=== PATIENT | male | born 1950 | race Caucasian/White ===

== ENCOUNTER 2018-01-31 03:34 | Inpatient (IN) | payer OTHER ==
[~2018-01-31] VITALS: Ht 152.4 cm; Wt 95.3 kg
[~2018-01-31 03:34] MED LIST: ASPIRIN81 M4 PO; BENICAR40 M1 PO; MELOXICAM7.5 M1 PO; METFORMIN HCL500 M3 PO; NIASPAN1000 M1 PO; SIMVASTATIN40 M1 PO; TRAMADOL HCL50 M1 PO
--- NOTE | 2018-01-31 09:34 | Operative Report ---
Operative/Inv Procedure Report Surgery Date: 01/31/18 Name of Procedure: Right total knee arthroplasty Pre-Operative Diagnosis: Right knee primary osteoarthritis Post-Operative Diagnosis: Same Estimated Blood Loss: less than 50ml Surgeon/Staffing Program Manager: Thomas BEAN,Vicente Ross PA Anesthesia: block Implants: [place] triathlon total knee system-size 4 femur, size 5 tibia, 16mm cruciate retaining polyethylene, 33 patella Drains: None Specimens: Femoral, tibial, patellar bone,, hypertrophied synovium Microbiology: Urine Tourniquet: 51 minutes Complications: None Condition: Stable Operative Indication: Patient is a 67-year-old man with a long history of right knee problems. He was diagnosed with severe end-stage osteoarthritis years ago. He had tolerated symptoms with some conservative measures. However he had increasing symptoms that interfere with normal activities of daily living. He describes instability. He wished to proceed with total knee arthroplasty. Risks benefits and expectations of the surgical procedure were discussed which included but were not limited to persistent knee pain, need for subsequent surgery, infection , DVT, injury of blood vessel or nerve and anesthesia risks Operative/Procedure Note Note: Patient was brought to the operating room and transferred to the operating table. Once an appropriate anesthesia the right lower extremity was prepped and draped in standard fashion. Preoperative IV antibiotics were given prophylactically. Prior to incision, patient was noted to have severe global instability of the knee on exam. The leg was elevated exsanguinated and tourniquet was inflated to 300 millimeters of pressure. Standard anterior incision was made for anticipated medial parapatellar approach to the knee. The incision was taken down sharply to the underlying retina acumen. A medial retinacular approach was used with a minimal extension to the quadricep tendon. The knee was exposed. Very large clear synovial fluid accumulation was evacuated. Large loose bodies were removed from the suprapatellar pouch. These were enclosed within a very hypertrophied synovium which was excised later on the case. Severe end-stage degenerative changes throughout the 3 compartments of the knee were noted. Osteophytes were excised. Soft tissue dissection was taken medially. Portion of the fat pad was removed for exposure purposes remnants of the medial lateral meniscal tissues were excised. PCL was recessed for balancing purposes. There was severe osteophyte formation within the notch to the point where there was no notch. Eburnated bone throughout all 3 compartments noted. Large osteophytes circumferentially excised. Knee was flexed and patella was subluxed. Retractors were placed medially laterally. The drill was used to enter the intramedullary canal for the intramedullary guide to the distal femoral cut. The cutting guide was pinned in place for a 6 valgus cut. Cut was made. Femur was then sized to a size 4. The 4 cuts were made to finished preparation of the femur. I then turned my attention to the tibia. I used the external tibial alignment guide and pinned the cutting block in neutral position from medial to lateral and reproducing patient's posterior slope based on intraoperative findings and preoperative templating. Again this soft tissues were protected medially laterally and posteriorly. PCL was recessed slightly for balancing purposes it was found to be intact despite patient's global instability. I then sized the tibia to a size 5. Osteophytes were excised from the posterior compartment trial reduction was completed. Due to patient's very large knee effusion and global instability, a large polyethylene would need to be used despite just a relatively conservative tibial cut. The final thickness of the polyethylene would be determined later on the case. A 13 mm polyethylene was used to temporarily reduce the knee and take it out to full extension. Patella was then measured and the appropriate thickness was removed and restored with a size 33 patella. Patella tracking was good and would be confirmed later on after the tourniquet was deflated. I marked my rotation of the tibia and drilled my 2 locals for the femur. All its rotation was removed from the knee. This was followed by the appropriate sized tibial punch to finish preparation of the tibia. All instrument patient was removed from the knee and copious irrigation the knee followed. Cement was being mixed on the back table. Once the cement was ready was applied to the dry clean bony surfaces of the tibia. The size 5 tibia was impacted in place and excess cement was removed with curette. Cement was applied to dry clean bony surfaces of the femur and the size 4 femur was impacted in place and excess cement was removed with curette. Cement was applied to the dry clean bony surfaces of the patella and excess cement was removed with a knife following impaction of the size 33 patella. Once the cement hardened and took the knee through range of motion. Small pieces of excess cement were removed with osteotome. I did a trial reduction with a size 16 polyethylene full extension. Excellent mid flexion stability and full flexion to gravity noted. Obese irrigation the knee followed. I removed the trial polyethylene. Copious irrigation of the tibial tray followed. I made sure there was no remaining soft tissue, bone fragments or cement fragments within the tibial tray and then I impacted the definitive size 16 cruciate retaining polyethylene component into place and the locking mechanism was confirmed. Copious irrigation followed. Tourniquet was deflated at 51 minutes. Hemostasis was obtained. The retinaculum and minimal extension to the quadricep was repaired with interrupted #1 Vicryl sutures. Subcu tissue was closed in 2 layers with 2-0 Vicryl and skin was closed with a running 3-0 Vicryl suture with the knee in flexion. Every level of closure was followed by copious irrigation. Appropriate dressings were applied and patient was awakened and taken to recovery room in good condition. Blood loss was less than 50 cc Discharge Disposition: PACU
[2018-01-31 14:06] VITALS: BP 146/86
--- NOTE | 2018-01-31 16:05 | PN- Orthopedic ---
Subjective Subjective: POC pain well controlled, no n/v, no cp/sob. no oob yet. awaiting meal. +uo via abraham Objective Vital Signs and I&Os Intake & Output 01/31 0801/31 0000 01/30 0801/30 0000 Intake Total Output Total Balance Patient 210 lb Weight Weight Reported by Patient Measurement Method Physical Exam: GEN- NAD CARD- S1S2 PULM- CTAB ABD- soft nt nd EXT- right le dressed w juan jose, feet warm, palp pedal pulses +dorsi/plantar flexion , +sensation bl Assessment/Plan Assessment/Plan A- POD0 sp R TKR, stable with minimal pain P- PT, WBAT anticoagulation: eliquis 2.5 bid, alps diet as tolerated home meds prn pain meds prn antiemetics dc planning will dw attending Core Measures Venous Thromboembolism VTE Risk Factors Surgery No Mechanical VTE Prophylaxis d/t N/A MechProphylax Ordered No VTE Pharm Prophylaxis d/t NA PharmProphylax ordered
[2018-01-31 16:58] VITALS: BP 143/100
[2018-01-31 21:09] VITALS: BP 157/94
[2018-02-01 01:00] VITALS: BP 163/87
[2018-02-01 05:00] VITALS: BP 151/85
--- NOTE | 2018-02-01 08:14 | PN- Orthopedic ---
See Addendum Subjective Subjective: POD#1 S/P RIGHT TKA NO MAJOR ISSUES OVERNIGHT DENEIS CP, SOB, NO N+V WITH DIET Objective Vital Signs and I&Os Vital Signs Date Time Temp Pulse Resp B/P B/P Pulse O2 O2 Flow FiO2 Mean Ox Delivery Rate 02/01 0500 98.1 80 19 151/85 96 02/01 0100 98.1 71 18 163/87 94 01/31 2109 98.7 85 18 157/94 92 Room Air 01/31 1658 97.8 91 20 143/100 93 Room Air 01/31 1406 97.4 76 18 146/86 96 Room Air Intake & Output 02/01 1600 02/01 0800 02/01 0000 01/31 1600 01/31 0800 01/31 0000 Intake Total 540 Output Total 1999 1500 Balance -1999 -960 Intake, IV 300 Intake, Oral 240 Number 0 Bowel Movements Output, Urine 1999 1499 Patient 210 lb 210 lb Weight Weight Reported by Patient Measurement Method Physical Exam: CV: RRR LUNGS: CLEAR ABD: SOFT, +BS EXT: DRSG DRY DISTAL CMS INTACT Assessment/Plan Assessment/Plan ORTHO STABLE PLAN OOB WITH PT TODAY WBAT RIGHT LE D/C IVF TITRATE PAIN MEDS HOME D/C PLAN Core Measures Venous Thromboembolism VTE Risk Factors Surgery No Mechanical VTE Prophylaxis d/t N/A MechProphylax Ordered No VTE Pharm Prophylaxis d/t NA PharmProphylax ordered
[2018-02-01 08:23] LABS: ABSOLUTE BASOPHIL COUNT 0 /CUMM (0.0-0.2); ABSOLUTE EOSINOPHIL COUNT 0 /CUMM (0.0-0.7); ABSOLUTE GRANULOCYTE CT 8.2 /CUMM (1.4-6.5); ABSOLUTE LYMPH COUNT 0.9 /CUMM (1.2-3.4); ABSOLUTE MONOCYTE COUNT 0.7 /CUMM (0.10-0.60); BASOPHIL % 0.3 % (0.0-2.0); EOSINOPHIL % 0 % (0-5); GRANULOCYTE % 82.6 % (42.2-75.2); HEMATOCRIT 38.8 % (42-52); MEAN CORPUSCULAR HGB 31.8 PG (27.0-31.0); MEAN CORPUSCULAR VOLUME 93.6 FL (80.0-94.0); MEAN PLATELET VOLUME 7.9 FL (7.4-10.4); PLATELET COUNT 221 /CUMM (130-400); RBC DISTRIBUTION WIDTH 13.2 % (11.5-14.5); RED BLOOD CELL CT 4.15 /CUMM (4.70-6.10); WHITE BLOOD CELL COUNT 9.9 /CUMM (4.8-10.8)
[2018-02-01 08:43] VITALS: BP 132/91
[2018-02-01 13:31] VITALS: BP 146/102
[2018-02-01 16:10] VITALS: BP 130/78
[2018-02-01 21:49] VITALS: BP 142/85
[2018-02-02 06:39] VITALS: BP 139/80
[2018-02-02 08:59] VITALS: BP 130/70
--- NOTE | 2018-02-02 09:22 | Patient Discharge Instructions ---
Discharge Instructions General Discharge Information You were seen/treated for: Right knee pain related to unilateral primary osteoarthritis You had these procedures: Right total knee replacement Watch for these problems: Increasing pain despite the use of pain medication Increasing redness, warmth and swelling to right knee Inability to bear weight on right knee Drainage of any type from incision Inability to urinate or move bowels Fever greater than 101.5 Do not soak the wound: Yes No bath, but you may shower: Yes Other wound care: Please keep wound clean and dry, protect wound while showering, do not scrub incision, pat dry with clean towel in the event that wound gets wet. No ointments of any type on or near incision at any time, no exceptions. Do not soak wound in bath, hot tub, or any body of water for a minimum of 6 weeks or until other herrera indicated by Dr. Guzman Special Instructions: Please be certain to take a stool softener or a laxative, or both, in the event that the pain medication leaves you constipated. If after a few days you are unable to move your bowels, or if you develop excessive bloating, are nauseated or vomitting, and are unable to pass gas, please contact your doctor or visit the ER. Diet Continue normal diet: Yes Recommended Diet: Regular Activity Full Activity/No Limits: No Activity Self Limited: Yes Pounds, do NOT lift more than: 10 Acute Coronary Syndrome Inclusion Criteria At DC or during hospital stay patient has or had the following: ACS DIAGNOSIS No Discharge Core Measures Meds if any: Prescribed or Continued at Discharge Meds if any: NOT Prescribed or Continued at Discharge Congestive Heart Failure Inclusion Criteria At DC or during hospital stay patient has or had the following: CHF DIAGNOSIS No Discharge Core Measures Meds if any: Prescribed or Continued at Discharge Meds if any: NOT Prescribed or Continued at Discharge Cerebrovascular accident Inclusion Criteria At DC or during hospital stay patient has or had the following: CVA/TIA Diagnosis No Discharge Core Measures Meds if any: Prescribed or Continued at Discharge Meds if any: NOT Prescribed or Continued at Discharge Venous thromboembolism Inclusion Criteria VTE Diagnosis No VTE Type NONE VTE Confirmed by (Test) NONE Discharge Core Measures - Per Current guidelines, there needs to be overlap - treatment for the first 5 days of Warfarin therapy. - If discharged on Warfarin prior to 5 days of - overlap therapy, the patient will need to be - assessed for post discharge needs including - *Post discharge parental anticoagulation - *Warfarin and/or parental anticoagulation education - *Follow up date to check INR post discharge At least 5 days overlap therapy as Inpatient No Meds if any: Prescribed or Continued at Discharge Note: Overlap Therapy is Warfarin and Anticoagulant Meds if any: NOT Prescribed or Continued at Discharge
[2018-02-02] MEDS ORDERED: PERCOCET 5-3251 EACH PO (09:25)
[2018-02-02] MEDS ORDERED: MIRALAX17 G1 PO (09:25)
[2018-02-02] MEDS ORDERED: ELIQUIS2.5 M1 PO (09:25)
[2018-02-02] MEDS ORDERED: COLACE100 M1 PO (09:25)
--- NOTE | 2018-02-02 09:27 | Surgical Discharge Summary ---
Visit Information Visit Dates Admission Date: 01/31/18 Discharge Date: 02/02/2018 History of Present Illness Chief Complaint: Right knee pain related to unilateral primary osteoarthritis Medical History Neurological: NONE Cardiovascular: hypertension, hyperlipidemia Respiratory: NONE Gastrointestinal: NONE Hepatic: NONE Renal: nephrolithiasis Musculoskeletal: osteoarthritis Psychiatric: NONE Endocrine: diabetes Cancer(s): NONE History of MRSA: No History of VRE: No History of CDIFF: No Isolation History: Standard Influenza Vaccine: 11/15/16 Tetanus Vaccine: Surgical History Pertinent Surgical History: arthroscopy Psychosocial History Who Do You Live With? Family What is Your Primary Language? Somali Review of Systems: See H&P Hospital Course Course Attending Physician: Thomas BEAN,[facility] Primary Care Physician: Leandra BEAN,[facility] Course: Josafat was admitted to the hospital on 01/31/2018 and underwent an elective and scheduled right total knee replacement. He tolerated the procedure well and was transferred to a general surgical floor. His diet was advanced and tolerated. He voided spontaneously. He was evaluated and treated by physical therapy and was cleared for discharge to home with home health services. Throughout hospital course and at the time of hospital discharge, his vital signs were stable and within normal limits, his neurovascular status was grossly intact and his pain was controlled with the use of oral pain medication. Allergies: Coded Allergies: No Known Allergies (01/21/18) Disposition Summary Disposition Principal Diagnosis: Right knee unilateral primary osteoarthritis Additional Diagnosis: None Discharge Disposition: home health services Discharge Instructions General Discharge Information Code Status: Full Code Patient's Diet: Diabetic, advance as tolerated Patient's Activity: WBAT Follow-Up Instructions/Appts: Follow up with Dr. Guzman office in 2 weeks from date of surgery Medications at Discharge Discharge Medications: Stop taking the following medications: Meloxicam (Meloxicam) 7.5 MG TABLET ORAL DAILY Tramadol HCl (Tramadol HCl) 50 MG TABLET ORAL THREE TIMES A DAY NEEDED as needed for PAIN Aspirin (Aspirin*) 81 MG TAB.CHEW ORAL Every night Continue taking these medications: Olmesartan Medoxomil (Benicar) 40 MG TABLET 1 Tablet ORAL DAILY Metformin HCl (Metformin HCl) 500 MG TABLET 1 Tablet ORAL Every Day Niacin (Niaspan) 1,000 MG TAB.ER.24H 1 Tablet ORAL Every night Simvastatin (Simvastatin*) 40 MG TABLET 1 Tablet ORAL Every night Start taking the following new medications: Apixaban (Eliquis) 2.5 MG TABLET 1 Tablet ORAL TWICE DAILY Qty = 84 No Refills Docusate Sodium (Colace) 100 MG CAPSULE 1 Capsule ORAL TWICE DAILY Qty = 14 No Refills Instructions: DISCONTINUE USE IF YOU DEVELOP LOOSE STOOL OR DIARRHEA Polyethylene Glycol 3350 (Miralax) 17 GRAM POWD.PACK 1 Packet ORAL DAILY Qty = 7 No Refills Instructions: dissolve in water, DISCONTINUE USE IF YOU DEVELOP LOOSE STOOL OR DIARRHEA Oxycodone HCl/Acetaminophen (Percocet 5-325 MG Tablet) 5 MG-325 MG TABLET 1-2 Tablet ORAL EVERY 4-6 HOURS as needed for PAIN Qty = 36 No Refills
--- NOTE | 2018-02-02 09:45 | PN- Orthopedic ---
See Addendum Subjective Subjective: No acute overnight events reported. Pain tolerated well, responds to pain regimen. Voiding. Passing flatus, no bm but no nausea, vomitting or distension. No chest pain or shortness of breath. Has been oob ambulating. cleared PT. Is interested in dc to home with [facility] today. Objective Vital Signs and I&Os Vital Signs Date Time Temp Pulse Resp B/P B/P Pulse O2 O2 Flow FiO2 Mean Ox Delivery Rate 02/02 0859 90 130/70 02/02 0639 98.2 82 20 139/80 94 Room Air 02/01 2149 97.7 86 20 142/85 95 Room Air 02/01 1610 84 130/78 02/01 1331 98.2 78 18 146/102 98 Room Air 02/01 1027 151/85 Intake & Output 02/02 1600 02/02 0800 02/02 0000 02/01 1600 02/01 0800 02/01 0000 Intake Total 130 230 640 720 540 Output Total 450 591 066 7707 1500 Balance -320 -420 290 -1280 -960 Intake, IV 10 30 600 300 Intake, Oral 120 200 640 120 240 Number 0 0 Bowel Movements Output, Urine 450 094 474 2210 1500 Patient 210 lb Weight Physical Exam: General: Alert and oriented x3, no acute distress Cards: RRR, s1s2 Pulm: CTA bilaterally, nonlabored respiratory effort Abd: Non-tender, non-distened Ext: Moves all extremities, neurovascular status grossly itnact. Bilateral calves soft and nontender. Surgical site: right knee, dressing dry and intact. Changed. Skin edges well approximated with subcuticular suture and steri strips. No drainage. No erythema. Assessment/Plan Assessment/Plan This is a 67 year old male. POD 2, s/p R TKA. PMH sig for htn, hld, dm. Progressing well -Continue home meds -Continue percocet for pain -Eliquis 2.5 bid for dvt ppx x6 weeks -OOB, WBAT -Bowel regimen: colace, senna, or miralax -Daily dry dressing changes DC to home with [facility] today Follow up with Kacy in 2 weeks from date of surgery Plan of care discussed with Dr. Guzman Core Measures Venous Thromboembolism VTE Risk Factors Surgery No Mechanical VTE Prophylaxis d/t N/A MechProphylax Ordered No VTE Pharm Prophylaxis d/t NA PharmProphylax ordered
--- NOTE | 2018-02-02 15:01 | RADIOLOGY REPORT ---
EXAMINATION: XR KNEE, RIGHT CLINICAL INFORMATION: Status post right TKA COMPARISON: None TECHNIQUE: AP and lateral views of the right knee. FINDINGS: Prosthetic components of the right total knee arthroplasty are appropriately aligned. No periprosthetic fracture. Gas from recent surgery is present in the joint and surrounding soft tissues. A joint effusion is present. Soft tissues are swollen. IMPRESSION: Appropriate alignment of the right total knee arthroplasty.
== END 2018-02-02 13:54 | disposition home health service (06) | DRG 470 ==
LOC: SDA 03:34 → 2NB 03:34 → ENRESERV 13:18 → ENTRNSPT 13:40 → EDTRNSPTSTS 13:57 → EDTRNSPT 13:57 → 2NB 14:07 → CMPTRNSPT 14:43 → ENPENDDIS 02-02 10:13 → ENTRNSPT 02-02 13:15 → CMPTRNSPT 02-02 13:41 → 2NB 02-02 13:54
PROVIDERS: Physician Assistant Surgical
PROC: 3E0T3BZ Introduction of Anesthetic Agent into Peripheral Nerves and Plexi, Percutaneous Approach (ICD-10-PCS; principal; 2018-01-31)
PROC: 0SRC0JZ Replacement of Right Knee Joint with Synthetic Substitute, Open Approach (ICD-10-PCS; principal; 2018-01-31)
DX: M17.11 Unilateral primary osteoarthritis, right knee (principal); E78.5 Hyperlipidemia, unspecified; I10 Essential (primary) hypertension; E11.9 Type 2 diabetes mellitus without complications
CPT/HCPCS: 2NBP; 36415; 36592; 73560-RT; 82436; 87086; 97110-GO; 97116-GO; 97161-GP; 97530-GO; C1713; C9290; J1100; J3370; J3490; J7040